=== PATIENT | female | born 1985 | race Caucasian/White ===

== ENCOUNTER 2018-01-31 16:19 | Emergency (ER) | payer MEDICAID ==
[2018-01-31] MEDS ORDERED: Lactated Ringers 1,000 ML IV ONE ×3 (16:36→19:39)
[2018-01-31] MEDS ORDERED: Sodium Chloride 0.9% 10 ML Syringe FLUSH PRN (16:37)
--- NOTE | 2018-01-31 16:55 | EDM.PDOC ---
ED HPI GENERAL MEDICAL PROBLEM - General Chief Complaint: Neurological Problem Stated Complaint: SEIZURES Time Seen by Provider: 01/31/18 16:29 Source of Information: Reports: Patient History Limitations: Reports: Intoxication - History of Present Illness INITIAL COMMENTS - FREE TEXT/NARRATIVE: 32-year-old female presents for evaluation and treatment of a possible seizure. This occurred prior to arrival in the ER. Patient is on started on 3 new medications today hydroxyzine, Effexor and prazosin. She took these medications all the same time and then went to [facility]. After taking the medication, she then realized that the prazosin was prescribed at bedtime. While walking into [facility] she felt lightheaded and passed out in her boyfriend's arms. Boyfriend reports that she was convulsing. She did not bite her tongue. No urinary incontinence or stool incontinence. She did not fall and hit her head he was able to lower her down. She is denying a headache at this time. States that she did feel short of breath, nauseated and lightheaded but no vomiting. No chest pain or abdominal pain. She denies any recent trauma such as motor vehicle accidents or falls. She reports that she gave . December 31 via vaginal delivery. She has had some bleeding since giving but this stopped all 4 days ago. 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 She is under the care of Dr. mcmahon who prescribed these medications for her methamphetamine use. - Related Data Allergies Allergy/AdvReac Type Severity Reaction Status Date / Time Penicillins Allergy Rash Verified 01/31/18 16:25 Home Meds: Home Meds Prazosin [Minpress] 1 mg PO BEDTIME #30 cap 01/31/18 [Rx] Venlafaxine HCl [Venlafaxine ER] 37.5 mg PO DAILY 01/31/18 [History] hydrOXYzine pamoate [Hydroxyzine Pamoate] 25 mg PO BID 01/31/18 [History] hydrOXYzine pamoate [Hydroxyzine Pamoate] 100 mg PO BEDTIME 01/31/18 [History] Past Medical History Neurological History: Reports: Seizure Psychiatric History: Reports: Addiction, Anxiety, Depression Social & Family History - Tobacco Use Smoking Status *Q: Current Every Day Smoker Years of Tobacco use: 15 Packs/Tins Daily: 0.5 - Recreational Drug Use Recreational Drug Use: Yes Drug Use in Last 12 Months: Yes Recreational Drug Type: Reports: Marijuana/Hashish, Methamphetamine ED ROS GENERAL - Review of Systems Review Of Systems: See Below Constitutional: Denies: Fever, Chills HEENT: Reports: Other (no tongue biting) Respiratory: Denies: Shortness of Breath Cardiovascular: Reports: Lightheadedness. Denies: Chest Pain, Syncope GI/Abdominal: Reports: Abdominal Pain, Nausea. Denies: Stool Incontinence, Vomiting : Denies: Incontinence Neurological: Reports: Seizure, Syncope. Denies: Headache, Numbness, Tingling - Physical Exam Exam: See Below Exam Limited By: No Limitations General Appearance: Alert, WD/WN, No Apparent Distress Eye Exam: Bilateral Eye: EOMI, Normal Inspection, PERRL Ears: Normal External Exam Nose: Normal Inspection Throat/Mouth: Normal Inspection, Normal Lips, Normal Voice, No Airway Compromise. No: Evidence of Tongue Biting Neck: Normal Inspection Respiratory/Chest: No Respiratory Distress, Lungs Clear, Normal Breath Sounds Cardiovascular: Normal Peripheral Pulses, Regular Rate, Rhythm, No Murmur GI/Abdominal: Soft, Non-Tender Neuro Exam (Abbreviated): Alert, Oriented, Normal Cognition Psychiatric: Normal Affect, Normal Mood Skin Exam: Warm, Dry, Normal Color EKG INTERPRETATION EKG Date: 01/31/18 Time: 16:50 Rhythm: NSR Rate (Beats/Min): 82 [place]: Normal P-Wave: Present QRS: Normal ST-T: Normal QT: Normal EKG Interpretation Comments: NSR at [address] segment changes. Reviewed by myself and Dr. Nicholas. Course - Vital Signs Last Recorded V/S: Last Vital Signs Temp 97.2 F 01/31/18 16:25 Pulse 91 01/31/18 16:25 Resp BP 86/49 L 01/31/18 16:25 Pulse Ox 98 01/31/18 16:25 - Orders/Labs/Meds Labs: Laboratory Tests 01/31/18 01/31/18 01/31/18 Range/Units 16:40 16:40 16:40 WBC 12.37 H (3.98-10.04) K/mm3 RBC 4.33 (3.98-5.22) M/mm3 Hgb 11.0 L (11.2-15.7) gm/L Hct 36.6 (34.1-44.9) % MCV 84.5 (79.4-94.8) fl MCH 25.4 L (25.6-32.2) pg MCHC 30.1 L (32.2-35.5) g/dl RDW Std Deviation 48.5 H (36.4-46.3) fL Plt Count 272 (182-369) K/mm3 MPV 11.3 (9.4-12.3) fl Neut % (Auto) 63.6 (34.0-71.1) % Lymph % (Auto) 30.2 (19.3-51.7) % [place] % (Auto) 4.1 L (4.7-12.5) % Eos % (Auto) 1.5 (0.7-5.8) Baso % (Auto) 0.2 (0.1-1.2) % Neut # (Auto) 7.86 H (1.56-6.13) K/mm3 Lymph # (Auto) 3.73 (1.18-3.74) K/mm3 [place] # (Auto) 0.51 H (0.24-0.36) K/mm3 Eos # (Auto) 0.19 (0.04-0.36) K/mm3 Baso # (Auto) 0.03 (0.01-0.08) K/mm3 Sodium 139 (136-145) mEq/L Potassium 3.8 (3.5-5.1) mEq/L Chloride 104 (98-107) mEq/L Carbon Dioxide 22 (21-32) mEq/L Anion Gap 16.8 H (5-15) BUN 18 (7-18) mg/dL Creatinine 1.3 H (0.55-1.02) mg/dL Est Cr Clr Drug Dosing 59.24 mL/min Estimated GFR (MDRD) 48 (>60) mL/min BUN/Creatinine Ratio 13.8 L (14-18) Glucose 156 H (74-106) mg/dL Calcium 8.3 L (8.5-10.1) mg/dL Phosphorus 4.3 (2.6-4.7) mg/dL Magnesium 1.9 (1.8-2.4) mg/dl Total Bilirubin 0.2 (0.2-1.0) mg/dL AST 13 L (15-37) U/L ALT 22 (14-59) U/L Alkaline Phosphatase 108 (46-116) U/L Total Protein 7.2 (6.4-8.2) g/dl Albumin 3.4 (3.4-5.0) g/dl Globulin 3.8 gm/dL Albumin/Globulin Ratio 0.9 L (1-2) HCG, Qual Negative (NEGATIVE) Urine Color (Yellow) Urine Appearance (Clear) Urine pH (5.0-8.0) Ur Specific [place] (1.005-1.030) Urine Protein (Negative) Urine Glucose (UA) (Negative) Urine Ketones (Negative) Urine Occult Blood (Negative) Urine Nitrite (Negative) Urine Bilirubin (Negative) Urine Urobilinogen (0.2-1.0) Ur Leukocyte Esterase (Negative) Urine RBC (0-5) /hpf Urine WBC (0-5) /hpf Ur Epithelial Cells (0-5) /hpf Urine Bacteria (FEW) /hpf Urine Mucus (FEW) /hpf Urinalysis Comment Urine Opiates Screen (NEGATIVE) Ur Buprenorphine Scrn (NEGATIVE) Ur Oxycodone Screen (NEGATIVE) Urine Methadone Screen (NEGATIVE) Ur Propoxyphene Screen (NEGATIVE) Ur Barbiturates Screen (NEGATIVE) Ur Tricyclics Screen (NEGATIVE) Ur Phencyclidine Scrn (NEGATIVE) Ur Amphetamine Screen (NEGATIVE) U Methamphetamines Scrn (NEGATIVE) U Benzodiazepines Scrn (NEGATIVE) U Cocaine Metab Screen (NEGATIVE) U Marijuana (THC) Screen (NEGATIVE) Ethyl Alcohol 0.00 (0.00) gm% 01/31/18 01/31/18 Range/Units 19:05 19:05 WBC (3.98-10.04) K/mm3 RBC (3.98-5.22) M/mm3 Hgb (11.2-15.7) gm/L Hct (34.1-44.9) % MCV (79.4-94.8) fl MCH (25.6-32.2) pg MCHC (32.2-35.5) g/dl RDW Std Deviation (36.4-46.3) fL Plt Count (182-369) K/mm3 MPV (9.4-12.3) fl Neut % (Auto) (34.0-71.1) % Lymph % (Auto) (19.3-51.7) % [place] % (Auto) (4.7-12.5) % Eos % (Auto) (0.7-5.8) Baso % (Auto) (0.1-1.2) % Neut # (Auto) (1.56-6.13) K/mm3 Lymph # (Auto) (1.18-3.74) K/mm3 [place] # (Auto) (0.24-0.36) K/mm3 Eos # (Auto) (0.04-0.36) K/mm3 Baso # (Auto) (0.01-0.08) K/mm3 Sodium (136-145) mEq/L Potassium (3.5-5.1) mEq/L Chloride (98-107) mEq/L Carbon Dioxide (21-32) mEq/L Anion Gap (5-15) BUN (7-18) mg/dL Creatinine (0.55-1.02) mg/dL Est Cr Clr Drug Dosing mL/min Estimated GFR (MDRD) (>60) mL/min BUN/Creatinine Ratio (14-18) Glucose (74-106) mg/dL Calcium (8.5-10.1) mg/dL Phosphorus (2.6-4.7) mg/dL Magnesium (1.8-2.4) mg/dl Total Bilirubin (0.2-1.0) mg/dL AST (15-37) U/L ALT (14-59) U/L Alkaline Phosphatase (46-116) U/L Total Protein (6.4-8.2) g/dl Albumin (3.4-5.0) g/dl Globulin gm/dL Albumin/Globulin Ratio (1-2) HCG, Qual (NEGATIVE) Urine Color Yellow (Yellow) Urine Appearance Clear (Clear) Urine pH 6.5 (5.0-8.0) Ur Specific [place] 1.015 (1.005-1.030) Urine Protein Negative (Negative) Urine Glucose (UA) Negative (Negative) Urine Ketones Negative (Negative) Urine Occult Blood Trace-intact H (Negative) Urine Nitrite Positive H (Negative) Urine Bilirubin Negative (Negative) Urine Urobilinogen 0.2 (0.2-1.0) Ur Leukocyte Esterase Trace H (Negative) Urine RBC 0-5 (0-5) /hpf Urine WBC 0-5 (0-5) /hpf Ur Epithelial Cells 5-10 H (0-5) /hpf Urine Bacteria Many H (FEW) /hpf Urine Mucus Few (FEW) /hpf Urinalysis Comment Urine Opiates Screen Negative (NEGATIVE) Ur Buprenorphine Scrn Negative (NEGATIVE) Ur Oxycodone Screen Negative (NEGATIVE) Urine Methadone Screen Negative (NEGATIVE) Ur Propoxyphene Screen Negative (NEGATIVE) Ur Barbiturates Screen Negative (NEGATIVE) Ur Tricyclics Screen Negative (NEGATIVE) Ur Phencyclidine Scrn Negative (NEGATIVE) Ur Amphetamine Screen Negative (NEGATIVE) U Methamphetamines Scrn Negative (NEGATIVE) U Benzodiazepines Scrn Negative (NEGATIVE) U Cocaine Metab Screen Negative (NEGATIVE) U Marijuana (THC) Screen Presumptive positive H (NEGATIVE) Ethyl Alcohol (0.00) gm% Meds: Medications Discontinued Medications Generic Name Dose Route Start Last Admin Trade Name Freq PRN Reason Stop Dose Admin Acetaminophen 975 mg 01/31/18 18:33 01/31/18 18:39 Tylenol PO 01/31/18 18:34 975 mg NOW ONE Administration Lactated Ringer's 1,000 mls @ 999 mls/hr 01/31/18 16:36 01/31/18 16:47 Ringers, Lactated IV 01/31/18 17:36 999 mls/hr .BOLUS ONE Administration Lactated Ringer's 1,000 mls @ 999 mls/hr 01/31/18 16:42 01/31/18 17:54 Ringers, Lactated IV 01/31/18 17:42 999 mls/hr .BOLUS ONE Administration Lactated Ringer's 1,000 mls @ 999 mls/hr 01/31/18 19:39 01/31/18 19:54 Ringers, Lactated IV 01/31/18 20:39 999 mls/hr .BOLUS ONE Administration Sodium Chloride 10 ml 01/31/18 16:37 01/31/18 16:48 Saline Flush FLUSH 10 ml ASDIRECTED PRN Administration Keep Vein Open - Radiology Interpretation Free Text/Narrative:: Head CT Technique: Multiple axial sections through the brain were obtained. Intravenous contrast was not utilized. Comparison: No prior intracranial imaging. Findings: Ventricles along with basal cisterns and sulci over the convexities are within normal limits for the patient's age. No abnormal parenchymal densities are seen. No evidence of intracranial hemorrhage. No midline shift or mass effect is seen. Bone window settings were reviewed which shows no acute calvarial abnormality. Soft tissue density is noted within both mastoid sinuses. Middle ear cavities appear to be clear. Impression: 1. Soft tissue density within both mastoid sinuses. This is most likely chronic if patient has no acute symptoms of mastoiditis. 2. No acute intracranial abnormality is identified. - Re-Assessments/Exams Free Text/Narrative Re-Assessment/Exam: 01/31/18 21:00 Patient is feeling better at this time. b/p has come up to the 90s systolic. Review of the patient's clinic records b/p on file low 110s systolic. I have reviewed the labs and imaging with the patient. I believe she likely suffered a syncopal episode due to low b/p. Likely from her medication she was just started on. Will discharge home at this time. Will lower the prazosin and decrease the hydroxyzine. Discharge instructions as documented. Departure - Departure Time of Disposition: 21:00 Disposition: Home, Self-Care 01 Condition: Fair Clinical Impression: Hypotension due to drugs - Discharge Information *PRESCRIPTION DRUG MONITORING PROGRAM REVIEWED*: No *COPY OF PRESCRIPTION DRUG MONITORING REPORT IN PATIENT SHANNON: No Prescriptions: Prazosin [Minpress] 1 mg PO BEDTIME #30 cap Instructions: Hypotension, [id number] Referrals: PCP,None [Primary Care Provider] - Free,Cari Rowan MD [Ordering Only Provider] - Forms: ED Department Discharge Additional Instructions: Continue your Effexor as prescribed. Stop the prazosin 2mg caps. start prazosin 1mg caps PO at hour of sleep. Take the hydroxyzine twice a day around 9 AM and 3 PM. Take 2 tabs at hour sleep to help with anxiety and insomnia. Rest. make Sure you're drinking plenty of fluids. take your time when you get up and go slowly. Follow up with your primary care provider as needed. Please return the ER if your symptoms change or worsen.
[2018-01-31] MEDS ORDERED: Acetaminophen 325 MG Tab PO ONE (18:33)
== END 2018-01-31 21:21 | disposition home or self-care (01) ==
LOC: JD.ED 16:19
DX: I95.2 Hypotension due to drugs (principal); T43.595A Adverse effect of other antipsychotics and neuroleptics, initial encounter; T43.215A Adverse effect of selective serotonin and norepinephrine reuptake inhibitors, initial encounter; T44.6X5A Adverse effect of alpha-adrenoreceptor antagonists, initial encounter; F41.9 Anxiety disorder, unspecified; F32.9 Major depressive disorder, single episode, unspecified; F17.210 Nicotine dependence, cigarettes, uncomplicated; Z88.0 Allergy status to penicillin; Z79.899 Other long term (current) drug therapy
CPT/HCPCS: 36415; 70450; 80053; 80306; 81001; 83735; 84100; 84703; 85025; 87086; 87088; 87186; 93005; 96360; 96361; 99285; A9270; G0480; J7050; J7120

== ENCOUNTER 2020-01-12 01:54 | Emergency (ER) | payer MEDICAID ==
--- NOTE | 2020-01-12 03:25 | EDM.PDOC ---
ED HPI GENERAL MEDICAL PROBLEM - General Chief Complaint: ENT Problem Stated Complaint: HEARING AID STUCK Time Seen by Provider: 01/12/20 02:21 Source of Information: Reports: Patient, Significant Other (Boyfriend) History Limitations: Reports: Physical Impairment (Hard of hearing) - History of Present Illness INITIAL COMMENTS - FREE TEXT/NARRATIVE: Ms. Banda is a pleasant 34-year-old woman with a past medical history significant for profound hard of hearing, due to, she states, numerous bilateral myringotomies, who now presents the ED stating that she has an earbud stuck in her left ear. She states that she uses a device called Listen Up, which is an external microphone with wired ear buds. She states that the larger ear buds were uncomfortable, therefore she tried a smaller one in her left ear, but it fell off, arounf 01:30 this morning. She tried to retrieve it by sticking her finger in her ear, only causing it to go further into the canal. She denies having any pain. Here in the ED, the patient is found to be hemodynamically stable, afebrile, saturating 96% on room air. Other than the foreign body in her left ear, the patient denies recent fever, chills, sore throat, ear pain, nasal or sinus congestion, cough, dyspnea, chest pain, palpitations, nausea, vomiting, constipation, diarrhea, abdominal pain, urinary symptoms, recent weight gain or weight loss, recent bloody bowel movements or black bowel movements, recent joint aches, headaches, or rashes. The patient's PCP is Dr. Qasim Quijano. - Related Data Allergies Allergy/AdvReac Type Severity Reaction Status Date / Time Penicillins Allergy Rash Verified 01/12/20 02:07 Home Meds: Home Meds . [No Known Home Meds] 01/12/20 [History] Past Medical History HEENT History: Reports: Hard of Hearing Psychiatric History: Reports: Addiction (methamphetamine), Anxiety (untreated), Depression (untreated) Endocrine/Metabolic History: Reports: Obesity/BMI 30+ - Past Surgical History HEENT Surgical History: Reports: Myringotomy w Tube(s) (bilateral, x 9), Tonsillectomy GI Surgical History: Reports: Cholecystectomy (2004) Musculoskeletal Surgical History: Reports: Arthroscopic Knee (bilateral) Social & Family History - Tobacco Use Smoking Status *Q: Current Every Day Smoker Years of Tobacco use: 18 Packs/Tins Daily: 0.5 Packs/Tins Daily Comment: Down from 1.5 ppd - Alcohol Use Alcohol Use History: Yes Alcohol Use Frequency: Socially - Recreational Drug Use Recreational Drug Use: Yes Recreational Drug Type: Reports: Marijuana/Hashish (last smoked 2017), Methamphetamine - Living Situation & Occupation Living situation: Reports: Single, with Significant Other (Boyfreind) Occupation: Unemployed ED ROS ENT - Review of Systems Review Of Systems: Comprehensive ROS is negative, except as noted in HPI. ED EXAM, ENT - Physical Exam Exam: See Below Exam Limited By: No Limitations General Appearance: Alert, WD/WN, No Apparent Distress Eye Exam: Bilateral Eye: EOMI, Normal Inspection Ears: Other (Inspection of the right external auditory canal found no foreign bodies, and no significant amount of cerumen. The tympanic membrane appeared to be normal, other than some scarring. On inspection of the left external auditory canal, a white rubber earbud was seen deep within the canal. Once removed, the canal appeared to be peripherally normal, with no swelling, e rythema, scratches, or bleeding. The left tympanic membrane also appeared to be normal, with the exception of scarring.) ED ENT PROCEDURES - Foreign Body Removal Consent Obtained: Patient Performing Doctor:: Ha Herrera Foreign Body Other Location Comment:: White rubber earbud in left external auditory canal Anesthesia Type: None Findings: Foreign body removed using tweezers Complications: No Course - Vital Signs Last Recorded V/S: Last Vital Signs Temp 36.4 C 01/12/20 02:08 Pulse 90 01/12/20 02:08 Resp 17 01/12/20 02:08 BP 119/66 01/12/20 02:08 Pulse Ox 96 01/12/20 02:08 - Re-Assessments/Exams Free Text/Narrative Re-Assessment/Exam: 01/12/20 03:21 I was able to visualize the foreign body in the patient's left external auditory canal. I was able to grasp it and remove it using a fine-taper serrated tweezer. The patient tolerated the procedure well. Careful inspection of her external auditory canal after removal found no erythema, swelling, scratches, or bleeding. I will discharge the patient home. Departure - Departure Time of Disposition: 03:25 Disposition: Home, Self-Care 01 Condition: Good Clinical Impression: Foreign body in left ear - Discharge Information *PRESCRIPTION DRUG MONITORING PROGRAM REVIEWED*: Not Applicable *COPY OF PRESCRIPTION DRUG MONITORING REPORT IN PATIENT SHANNON: Not Applicable Instructions: Ear Foreign Body Referrals: Qasim Quijano MD [Primary Care Provider] - Forms: ED Department Discharge Additional Instructions: You were seen in the emergency room after a Listen Up earbud became stuck in your left ear canal. The earbud was removed in the ER. You may resume usual activity, including use of your Listen up with a proper sized earbud. If any other problems, please do not hesitate to return to the ER. Sepsis Event Note (ED) - Evaluation Sepsis Screening Result: No Definite Risk
== END 2020-01-12 03:30 | disposition home or self-care (01) ==
LOC: JD.ED 01:54
DX: T16.2XXA Foreign body in left ear, initial encounter (principal); E66.9 Obesity, unspecified; F17.210 Nicotine dependence, cigarettes, uncomplicated; Z68.43 Body mass index [BMI] 50.0-59.9, adult; Z88.0 Allergy status to penicillin
CPT/HCPCS: 69200; 99282; 99282-25

== ENCOUNTER 2023-08-15 21:59 | Observation (INO) | payer BC ==
[2023-08-15] MEDS ORDERED: Sodium Chloride 0.9% 10 ML Syringe FLUSH PRN (22:34)
[2023-08-15 22:42] LABS: BASOPHILS ABSOLUTE AUTO 0.1 K/mm3 (0.0-0.2); BASOPHILS PERCENT AUTO 0.7 % (0.0-1.0); EOSINOPHILS ABSOLUTE AUTO 0.1 K/mm3 (0.0-0.4); EOSINOPHILS PERCENT AUTO 0.9 % (0.0-6.0); HEMATOCRIT 39.6 % (37.0-47.0); IMMATURE GRAN ABSOLUTE AUTO 0.06 K/mm3 (0.00-0.05); IMMATURE GRAN PERCENT AUTO 0.4 % (0.0-0.4); LYMPHOCYTES ABSOLUTE AUTO 4.3 K/mm3 (1.0-4.8); LYMPHOCYTES PERCENT AUTO 28.5 % (24.0-44.0); MEAN CORPUSCULAR HEMOGLOBIN 34.5 pg (28.0-32.0); MEAN CORPUSCULAR HGB CONC 35.4 g/dl (32.0-36.0); MEAN CORPUSCULAR VOLUME 97.5 fl (83.0-99.0); MEAN PLATELET VOLUME 10.4 fl (9.4-12.3); MONOCYTES ABSOLUTE AUTO 0.6 K/mm3 (0.0-0.8); MONOCYTES PERCENT AUTO 3.7 % (0.0-8.0); NEUTROPHILS ABSOLUTE AUTO 9.8 K/mm3 (1.8-7.7); NEUTROPHILS PERCENT AUTO 65.8 % (41.0-71.0); PLATELET COUNT,PLT 265 K/mm3 (150-400); RED BLOOD CELL COUNT 4.06 M/mm3 (4.10-5.30); WHITE BLOOD CELL COUNT,WBC 14.95 K/mm3 (3.9-11.3)
[2023-08-15] MEDS ORDERED: Sodium Chloride 0.9% 1,000 ML IV SCH (22:45)
[2023-08-15] MEDS ORDERED: Tranexamic Acid 1,000 MG/10 ML Vial IV ONE (23:01)
[2023-08-15 23:08] LABS: A/G RATIO 0.8 (1-2); ALANINE AMINOTRANSFERASE,ALT 51 U/L (14-59); ALBUMIN 3.3 g/dl (3.4-5.0); ALKALINE PHOSPHATASE 78 U/L (46-116); ANION GAP 16.7 (5-15); ASPARTATE AMNIOTRANSFERASE,AST 46 U/L (15-37); BILIRUBIN TOTAL 0.4 mg/dL (0.2-1.0); BLOOD UREA NITROGEN,BUN 8 mg/dL (7-18); BUN/CREATININE RATIO 8.9 (14-18); CALCIUM 8.4 mg/dL (8.5-10.1); CARBON DIOXIDE,CO2 27 mEq/L (21-32); CHLORIDE,CL 101 mEq/L (98-107); CREATININE 0.9 mg/dL (0.55-1.02); EST CRCL DRUG DOSING (CG) 84.03 mL/min; ESTIMATED GFR 85 mL/min (>60); GLUCOSE RANDOM 116 mg/dL (70-99); POTASSIUM,K 2.7 mEq/L (3.5-5.1); PROTEIN TOTAL,TP 7.4 g/dl (6.4-8.2); SODIUM,NA 142 mEq/L (136-145)
[2023-08-15 23:11] LABS: HCG QUANTITATIVE < 1.0 mIU/mL
[2023-08-16] MEDS ORDERED: Ondansetron 4 MG/2 ML SDV IVPUSH ONE (00:04)
[2023-08-16] MEDS ORDERED: Ondansetron 4 MG/2 ML SDV ONE (00:05)
[2023-08-16] MEDS ORDERED: Acetaminophen 325 MG Tab PO PRN (01:08)
[2023-08-16] MEDS ORDERED: Ibuprofen 600 MG Tab PO PRN (01:08)
[2023-08-16] MEDS ORDERED: Lactated Ringers 1,000 ML IV SCH (01:15)
[2023-08-16 02:32] LABS: HEMATOCRIT 36.8 % (37.0-47.0); HEMOGLOBIN 12.8 gm/dl (12.0-16.0); MEAN CORPUSCULAR HEMOGLOBIN 34.2 pg (28.0-32.0); MEAN CORPUSCULAR HGB CONC 34.8 g/dl (32.0-36.0); MEAN CORPUSCULAR VOLUME 98.4 fl (83.0-99.0); MEAN PLATELET VOLUME 10.1 fl (9.4-12.3); PLATELET COUNT,PLT 230 K/mm3 (150-400); RED BLOOD CELL COUNT 3.74 M/mm3 (4.10-5.30); WHITE BLOOD CELL COUNT,WBC 19.77 K/mm3 (3.9-11.3)
[2023-08-16] MEDS ORDERED: Ondansetron 4 MG/2 ML SDV IVPUSH PRN (04:00)
[2023-08-16 10:49] LABS: HEMATOCRIT 35.7 % (37.0-47.0); HEMOGLOBIN 12.6 gm/dl (12.0-16.0); MEAN CORPUSCULAR HEMOGLOBIN 34.7 pg (28.0-32.0); MEAN CORPUSCULAR HGB CONC 35.3 g/dl (32.0-36.0); MEAN CORPUSCULAR VOLUME 98.3 fl (83.0-99.0); MEAN PLATELET VOLUME 10.7 fl (9.4-12.3); PLATELET COUNT,PLT 211 K/mm3 (150-400); RED BLOOD CELL COUNT 3.63 M/mm3 (4.10-5.30)
[2023-08-16] MEDS ORDERED: Albuterol 6.7 GM Inhaler INH PRN (11:37)
== END 2023-08-16 12:06 | disposition home or self-care (01) ==
LOC: JD.ED 21:59 → JD.MS 08-16 01:08
PROVIDERS: ADMIT Obstetrics & Gynecology; ATTEND Obstetrics & Gynecology
DX: N92.1 Excessive and frequent menstruation with irregular cycle (principal)
CPT/HCPCS: 36415; 76830; 80053; 84702; 85025; 85027; 86900; 86901; 96361; 96374; 96375; 99285; A9270; G0378; J2405; J3490; J7030; J7120